=== PATIENT | male | born 1950 | race Caucasian/White ===

== ENCOUNTER 2020-03-21 11:16 | Inpatient (IN) | payer OTHER ==
[2020-03-21] MEDS ORDERED: ALBUTEROL HFA INHALER INHALATION STA (11:41)
[2020-03-21] MEDS ORDERED: SODIUM CHLORIDE 0.9% 1,000 ML IV STA (11:53)
[2020-03-21 12:01] LABS: Basophils # (A) 0.2 k/uL (0-0.2); Basophils % (A) 3 %; Eosinophils % (A) 0 %; HCT 49.8 % (39.0-53.0); HGB 17.8 gm/dL (13.0-17.5); Lymphocytes # (A) 0.5 k/uL (1.0-4.8); Lymphocytes % (A) 7 %; MCH 33.3 pg (25.0-35.0); MCHC 35.8 g/dL (31.0-37.0); Mean Platelet Volume 7.7; Monocytes # (A) 0.5 k/uL (0-1.0); Monocytes % (A) 8 %; Neutrophils # (A) 5.5 k/uL (1.3-7.7); Neutrophils % (A) 81 %; Platelet Count 238 k/uL (150-450); RBC 5.36 m/uL (4.30-5.90); RDW 12.1 % (11.5-15.5); WBC 6.8 k/uL (3.8-10.6)
--- NOTE | 2020-03-21 12:08 | ED ---
SOB HPI - General Chief Complaint: Shortness of Breath Stated Complaint: SOB Time Seen by Provider: 03/21/20 11:25 Source: patient, family Mode of arrival: wheelchair Limitations: no limitations - History of Present Illness Initial Comments: Patient is a 69-year-old male presenting to the emergency Department with complaints of shortness of breath it's been increasing over the past 10 days. Patient states his mother was recently admitted to the hospital for covert infection and his symptoms started shortly after that. He states he's has been having fevers, they've been usually low grade temperature. He denies history of asthma or COPD, he is a nonsmoker. He currently takes no medications. He states he is just been feeling really winded, nausea, increasing cough and the shortness of breath has really been making him more fatigued. He denies any Tylenol or Motrin today. Denies any abdominal pain, no vomiting, he did have some diarrhea but that has since cleared. He states he has lost a lot of his taste and smell as well. He has not been eating or drinking very much. He denies having headache, no dizziness. He has no further complaints at this time. Upon arrival to the ER, temp is 99.3, pulse is 108, 94% on room air, 138/89. - Related Data Home Medications Medication Instructions Recorded Confirmed No Known Home Medications 03/21/20 03/21/20 Allergies Allergy/AdvReac Type Severity Reaction Status Date / Time No Known Allergies Allergy Verified 03/21/20 13:38 Review of Systems ROS Statement: Those systems with pertinent positive or pertinent negative responses have been documented in the HPI. ROS Other: All systems not noted in ROS Statement are negative. Past Medical History Past Medical History: No Reported History History of Any Multi-Drug Resistant Organisms: None Reported Past Surgical History: No Surgical Hx Reported Past Psychological History: No Psychological Hx Reported Smoking Status: Never smoker Past Alcohol Use History: None Reported Past Drug Use History: None Reported General Exam - General Exam Comments Initial Comments: GENERAL: Patient is well-developed and well-nourished. Patient is nontoxic and in no acute distress, does look fatigued. HEAD: Atraumatic, normocephalic. EYES: Pupils equal round and reactive to light, extraocular movements intact, sclera anicteric, conjunctiva are normal. Eyelids were unremarkable. ENT: TMs normal, nares patent, oropharynx clear without exudates. Dry mucous membranes. NECK: Normal range of motion, supple without lymphadenopathy or JVD. LUNGS: Unlabored respirations. Breath sounds clear to auscultation bilaterally and equal. No wheezes rales or rhonchi. HEART: Regular rate and rhythm without murmurs, rubs or gallops. ABDOMEN: Soft, nontender, normoactive bowel sounds. No guarding, no rebound. No masses appreciated. : Deferred MUSCULOSKELETAL: Normal extremities with adequate strength and normal range of motion, no pitting or edema. No clubbing or cyanosis. NEUROLOGICAL: Patient is alert and oriented x 3. Motor and sensory are also intact. Cranial nerves II through XII grossly intact. Symmetrical smile. Normal speech, normal gait. PSYCH: Normal mood, normal affect. SKIN: Warm, Dry, normal turgor, no rashes or lesions noted. Limitations: no limitations Course Vital Signs 03/21/20 03/21/20 03/21/20 11:20 12:00 12:30 Temperature 99.3 F Pulse Rate 108 H 99 101 H Respiratory 19 22 18 Rate Blood Pressure 138/89 148/90 142/88 O2 Sat by Pulse 94 L 94 L 95 Oximetry 03/21/20 13:00 Temperature Pulse Rate 98 Respiratory 18 Rate Blood Pressure 140/85 O2 Sat by Pulse 93 L Oximetry Medical Decision Making - Medical Decision Making Patient 61-year-old male here for shortness of breath it's been increasingly the past 10 days. He recently had exposure to Covid about 10 days ago when his mother was admitted. No history of asthma, COPD, he is a nonsmoker. He takes no medications. His EKG shows nonspecific abnormalities, no signs of acute process. Chest x-ray shows mild right peripheral mid and right lower lobe infiltrates, compatible with atypical pneumonia. Patient's Covid test is positive. Labs show normal white count, typical elevation of liver enzymes, LDH, CRP with Covid patients. D-dimer side elevated at 1.02. We did order a CT to rule out PE. This is pending. Patient arrived afebrile, tachycardia at 108, 93% on room air. Patient was started on 2 L. He has been satting anywhere from 92-94% on the 2 L. He still feels very winded, fatigued. Patient will be admitted to continue with oxygen, steroids. Patient is in agreement with this plan of care. Patient accepted by Dr. bowling. Case discussed with Dr. Orta. - Lab Data Result diagrams: 03/21/20 11:52 03/21/20 11:52 Lab Results 03/21/20 03/21/20 03/21/20 Range/Units 11:52 11:52 11:52 WBC 6.8 (3.8-10.6) k/uL RBC 5.36 (4.30-5.90) m/uL Hgb 17.8 H (13.0-17.5) gm/dL Hct 49.8 (39.0-53.0) % MCV 93.0 (80.0-100.0) fL MCH 33.3 (25.0-35.0) pg MCHC 35.8 (31.0-37.0) g/dL RDW 12.1 (11.5-15.5) % Plt Count 238 (150-450) k/uL MPV 7.7 Neutrophils % 81 % Lymphocytes % 7 % Monocytes % 8 % Eosinophils % 0 % Basophils % 3 % Neutrophils # 5.5 (1.3-7.7) k/uL Lymphocytes # 0.5 L (1.0-4.8) k/uL Monocytes # 0.5 (0-1.0) k/uL Eosinophils # 0.0 (0-0.7) k/uL Basophils # 0.2 (0-0.2) k/uL PT 10.3 (9.0-12.0) sec INR 1.0 (<1.2) APTT 22.0 (22.0-30.0) sec D-Dimer 1.02 H (<0.60) mg/L FEU Sodium 138 (137-145) mmol/L Potassium 3.6 (3.5-5.1) mmol/L Chloride 101 (98-107) mmol/L Carbon Dioxide 27 (22-30) mmol/L Anion Gap 10 mmol/L BUN 17 (9-20) mg/dL Creatinine 1.07 (0.66-1.25) mg/dL Est GFR (CKD-EPI)AfAm 83 (>60 ml/min/1.73 sqM) Est GFR (CKD-EPI)NonAf 72 (>60 ml/min/1.73 sqM) Glucose 145 H (74-99) mg/dL Plasma Lactic Acid Orion (0.7-2.0) mmol/L Calcium 8.5 (8.4-10.2) mg/dL Magnesium 1.9 (1.6-2.3) mg/dL Total Bilirubin 1.9 H (0.2-1.3) mg/dL AST 71 H (17-59) U/L ALT 64 H (4-49) U/L Alkaline Phosphatase 127 H (38-126) U/L Lactate Dehydrogenase 883 H (313-618) U/L C-Reactive Protein 62.9 H (<10.0) mg/L Total Protein 7.0 (6.3-8.2) g/dL Albumin 3.7 (3.5-5.0) g/dL Coronavirus (PCR) (Not Detectd) 03/21/20 03/21/20 Range/Units 11:52 11:52 WBC (3.8-10.6) k/uL RBC (4.30-5.90) m/uL Hgb (13.0-17.5) gm/dL Hct (39.0-53.0) % MCV (80.0-100.0) fL MCH (25.0-35.0) pg MCHC (31.0-37.0) g/dL RDW (11.5-15.5) % Plt Count (150-450) k/uL MPV Neutrophils % % Lymphocytes % % Monocytes % % Eosinophils % % Basophils % % Neutrophils # (1.3-7.7) k/uL Lymphocytes # (1.0-4.8) k/uL Monocytes # (0-1.0) k/uL Eosinophils # (0-0.7) k/uL Basophils # (0-0.2) k/uL PT (9.0-12.0) sec INR (<1.2) APTT (22.0-30.0) sec D-Dimer (<0.60) mg/L FEU Sodium (137-145) mmol/L Potassium (3.5-5.1) mmol/L Chloride (98-107) mmol/L Carbon Dioxide (22-30) mmol/L Anion Gap mmol/L BUN (9-20) mg/dL Creatinine (0.66-1.25) mg/dL Est GFR (CKD-EPI)AfAm (>60 ml/min/1.73 sqM) Est GFR (CKD-EPI)NonAf (>60 ml/min/1.73 sqM) Glucose (74-99) mg/dL Plasma Lactic Acid Orion 1.9 (0.7-2.0) mmol/L Calcium (8.4-10.2) mg/dL Magnesium (1.6-2.3) mg/dL Total Bilirubin (0.2-1.3) mg/dL AST (17-59) U/L ALT (4-49) U/L Alkaline Phosphatase (38-126) U/L Lactate Dehydrogenase (313-618) U/L C-Reactive Protein (<10.0) mg/L Total Protein (6.3-8.2) g/dL Albumin (3.5-5.0) g/dL Coronavirus (PCR) Detected A (Not Detectd) - EKG Data EKG Comments: Sinus tach, nonspecific ST abnormalities, no signs of acute ischemia. Ventricul ar rate 106, MD interval 152, QT 342. Disposition Clinical Impression: Pneumonia due to COVID-19 virus, Hypoxia Disposition: ADMITTED IP TO THIS HOSP Condition: Stable Is patient prescribed a controlled substance at d/c from ED?: No Decision Date: 03/21/20 Decision Time: 13:26
[2020-03-21 12:13] LABS: Albumin 3.7 g/dL (3.5-5.0); C Reactive Protein 62.9 mg/L (<10.0); Calcium 8.5 mg/dL (8.4-10.2); Magnesium 1.9 mg/dL (1.6-2.3); Potassium 3.6 mmol/L (3.5-5.1); Total Bilirubin 1.9 mg/dL (0.2-1.3)
[2020-03-21 12:18] LABS: Prothrombin Time 10.3 sec (9.0-12.0)
[2020-03-21 12:29] LABS: D-Dimer 1.02 mg/L FEU (<0.60)
--- NOTE | 2020-03-21 12:30 | XR ---
EXAMINATION TYPE: XR chest 1V portable DATE OF EXAM: 03/21/2020 COMPARISON: None INDICATION: Suspected Covid pneumonia, fever TECHNIQUE: Single frontal view of the chest is obtained. FINDINGS: The heart size is normal. The pulmonary vasculature is normal. Mild nonspecific infiltrate to the right mid and lower lung field. Findings can be compatible with at ypical pneumonia. IMPRESSION: 1. Mild right peripheral mid and right lower lobe lobe infiltrates. Findings can be compatible with a typical pneumonia.
[2020-03-21] MEDS ORDERED: ACETAMINOPHEN TAB 500 MG TAB PO PRN (13:23)
[2020-03-21] MEDS: DEXAMETHASONE SOD PHOSPHATE 10 MG/ML 1 ML VIAL IV SCH (13:33)
[2020-03-21] MEDS: ENOXAPARIN 40 MG/0.4 ML SYRINGE SQ SCH (13:34)
--- NOTE | 2020-03-21 14:02 | CT ---
CT CHEST FOR PULMONARY EMBOLISM. EXAMINATION TYPE: CT chest angio for PE DATE OF EXAM: 03/21/2020 INDICATION: Elevated d-dimer, positive covid CT DLP: 734.1 mGycm, Automated exposure control for dose reduction was used. CONTRAST: Patient injected with 100, wasted 21 ml mL of Isovue 370. COMPARISON: TECHNIQUE: CT of the chest is performed on a spiral scan at 2 mm thick sections. Study is performed with intravenous contrast timed for evaluation for pulmonary embolism. This will limit additional po rtions of the evaluation. 3-D MIP images reconstructed by the technologist are reviewed on the compu ter in the coronal and sagittal planes. FINDINGS: No persistent filling defects are evident to suggest an acute pulmonary embolism. There is a small right pleural effusion. Some mild compressive atelectasis may be adjacent to the barbra g bases. Some patchy infiltrates in the periphery of the lungs. Consider atypical pneumonia within th e differential. The ascending aorta diameter at the level of the main pulmonary artery is 0.2 cm. The main pulmonary artery diameter at the bifurcation is 2.6 cm. There is soft tissue thickening extends to the infrahilar region into the right hilum. A 1.2 cm lymph node may be present at the right. There are scattered small lymph nodes within the mediastinum. Ther e is a subcarinal lymph node 1.4 cm. Few aortopulmonic window shotty nodes are present. Limited CT section through the upper abdomen are unremarkable. IMPRESSIONS: 1. No acute pulmonary embolism. 2. Scattered groundglass opacities and infiltrates within the periphery of the lower lung porter. Con manager perioperative atypical pneumonia within the differential. 3. There is some soft tissue thickening through the right infrahilar region with some enlarged medias tinal lymph nodes. Follow-up is recommended. Neoplasm is not excluded.
--- NOTE | 2020-03-21 14:54 | P.HPIM ---
History of Present Illness This is a pleasant 69 years old male with no significant past medical history presents because of dyspnea of 10 day duration associated with coughing clear phlegm and chest pain on coughing. He waited 10 days and then his made him come to the hospital. He had very bad diarrhea a few days ago but now resolved. No abdominal pain or vomiting. No headache or weakness or numbness were made no urinary complaints He denies smoking, alcohol or illicit drugs. He does not follow up with PCP does not have home medication On admission is tachycardic at 101, he is saturating 93% on 2 L oxygen via nasal cannula. Labs reviewed, CBC showing mild lymphopenia at 0.5K, INR is normal at 1.0, d-dimer slightly elevated at 1.0, BNP is unremarkable, magnesium is 1.9, liver enzymes slightly elevated with AST 71, ALT 64 and total bilirubin 1.9. Lactate dehydrogenase is high at 883 and C-reactive protein at 62.9. coronavirus is detected CT of the chest: No PE, scattered groundglass opacities in the periphery of the lower lung porter , there is some soft tissue thickening through the right infrahilar region with some enlarged mediastinal lymph nodes. Neoplasm not To exclude 1. Chest x-ray showing mild right lower lobe infiltrate. EKG showing size sinus tachycardia at [address]-T changes Review of Systems CONSTITUTIONAL: No fever, no malaise, no fatigue. HEENT: No recent visual problems or hearing problems. Denied any sore throat. CARDIOVASCULAR: No orthopnea, PND, no palpitations, no syncope. PULMONARY: No chest wall tenderness, no hemoptysis. GASTROINTESTINAL: No diarrhea, no nausea, no vomiting, no abdominal pain. Normoactive bowel sounds. NEUROLOGICAL: No headaches, no weakness, no numbness. HEMATOLOGICAL: Denies any bleeding or petechiae. GENITOURINARY: Denies any burning micturition, frequency, or urgency. MUSCULOSKELETAL/RHEUMATOLOGICAL: Denies any joint pain, swelling, or any muscle pain. ENDOCRINE: Denies any polyuria or polydipsia. Past Medical History Past Medical History: No Reported History History of Any Multi-Drug Resistant Organisms: None Reported Past Surgical History: No Surgical Hx Reported Past Psychological History: No Psychological Hx Reported Smoking Status: Never smoker Past Alcohol Use History: None Reported Past Drug Use History: None Reported Medications and Allergies Home Medications Medication Instructions Recorded Confirmed Type No Known Home Medications 03/21/20 03/21/20 History Allergies Allergy/AdvReac Type Severity Reaction Status Date / Time No Known Allergies Allergy Verified 03/21/20 13:38 Physical Exam Vitals: Vital Signs Temp Pulse Resp BP Pulse Ox 03/21/20 14:00 96 20 128/90 94 L 03/21/20 13:30 101 H 18 150/96 94 L 03/21/20 13:00 98 18 140/85 93 L 03/21/20 12:30 101 H 18 142/88 95 03/21/20 12:00 99 22 148/90 94 L 03/21/20 11:20 99.3 F 108 H 19 138/89 94 L Intake and Output 03/20/20 03/21/20 03/21/20 22:59 06:59 14:59 Other: Weight 102.058 kg GENERAL: The patient is alert and oriented x3, not in any acute distress. Well developed, well nourished. HEENT: Pupils are round and equally reacting to light. EOMI. No scleral icterus. No conjunctival pallor. Normocephalic, atraumatic. No pharyngeal erythema. No thyromegaly. CARDIOVASCULAR: S1 and S2 present. No murmurs, rubs, or gallops. PULMONARY: Chest is clear to auscultation, no wheezing or crackles. ABDOMEN: Soft, nontender, nondistended, normoactive bowel sounds. No palpable organomegaly. MUSCULOSKELETAL: No joint swelling or deformity. EXTREMITIES: No cyanosis, clubbing, or pedal edema. NEUROLOGICAL: Gross neurological examination did not reveal any focal deficits. SKIN: No rashes. No petechiae Results CBC & Chem 7: 03/21/20 11:52 03/21/20 11:52 Labs: Abnormal Lab Results - Last 24 Hours (Table) 03/21/20 03/21/20 03/21/20 Range/Units 11:52 11:52 11:52 Hgb 17.8 H (13.0-17.5) gm/dL Lymphocytes # 0.5 L (1.0-4.8) k/uL D-Dimer 1.02 H (<0.60) mg/L FEU Glucose 145 H (74-99) mg/dL Total Bilirubin 1.9 H (0.2-1.3) mg/dL AST 71 H (17-59) U/L ALT 64 H (4-49) U/L Alkaline Phosphatase 127 H (38-126) U/L Lactate Dehydrogenase 883 H (313-618) U/L C-Reactive Protein 62.9 H (<10.0) mg/L Coronavirus (PCR) (Not Detectd) 03/21/20 Range/Units 11:52 Hgb (13.0-17.5) gm/dL Lymphocytes # (1.0-4.8) k/uL D-Dimer (<0.60) mg/L FEU Glucose (74-99) mg/dL Total Bilirubin (0.2-1.3) mg/dL AST (17-59) U/L ALT (4-49) U/L Alkaline Phosphatase (38-126) U/L Lactate Dehydrogenase (313-618) U/L C-Reactive Protein (<10.0) mg/L Coronavirus (PCR) Detected A (Not Detectd) Assessment and Plan Assessment: Bilateral covid 19 pneumonia. soft tissue thickening through the right infrahilar region with some enlarged mediastinal lymph nodes. Neoplasm not To exclude Mildly elevated liver enzymes Plan: This is a pleasant 69 years old male who presents with Covid pneumonia, new pleasant also is not exclude it and the right infrahilar region. Continue with dexamethasone, vitamin C and zinc. Pulmonary consult. Oxygen as needed as well as Lovenox I told the patient about fullness in his right side of the chest with possible to be the mass and/or cancer with a recommendation that he follow-up with a lung doctor upon discharge and he agrees Labs and medication were reviewed.. Continue same treatment. Continue with symptomatic treatment. Resume home medication. Monitor lytes and vitals. DVT and GI prophylaxis. Further recommendations depends on the clinical course of the patient DVT prophylaxis: Subcutaneous Lovenox GI Prophylaxis: Pepcid Prognosis is guarded
[2020-03-21] MEDS: CHOLECALCIFEROL 25 MCG (1000 IU) TABLET PO SCH (15:58)
[2020-03-21] MEDS: ZINC SULFATE 220 MG CAP PO SCH (15:59)
[2020-03-21 16:34] LABS: Glucose,Whole Blood 138 mg/dL (75-99)
[2020-03-21] MEDS: INSULIN ASPART (NovoLOG) 100 UNIT/ML VIAL SQ SCH ×2 (17:05→20:28)
[2020-03-21 19:52] LABS: Ferritin 4181.7 ng/mL (22.0-322.0)
[2020-03-21 20:23] LABS: Glucose,Whole Blood 162 mg/dL (75-99)
[2020-03-22 06:57] LABS: Glucose,Whole Blood 117 mg/dL (75-99)
[2020-03-22] MEDS: INSULIN ASPART (NovoLOG) 100 UNIT/ML VIAL SQ SCH ×4 (07:41→20:53)
[2020-03-22] MEDS: DEXAMETHASONE SOD PHOSPHATE 10 MG/ML 1 ML VIAL IV SCH (08:54)
[2020-03-22] MEDS: ZINC SULFATE 220 MG CAP PO SCH (08:55)
[2020-03-22] MEDS: CHOLECALCIFEROL 25 MCG (1000 IU) TABLET PO SCH (08:55)
[2020-03-22] MEDS: ENOXAPARIN 40 MG/0.4 ML SYRINGE SQ SCH (08:55)
[2020-03-22] MEDS: FAMOTIDINE 20 MG TAB PO SCH (08:55)
[2020-03-22] MEDS: ASCORBIC ACID 500 MG TAB PO SCH (08:55)
[2020-03-22 11:28] LABS: Glucose,Whole Blood 135 mg/dL (75-99)
[2020-03-22] MEDS ORDERED: REMDESIVIR 200 MG in SODIUM CHLORIDE 0.9% 250 ML IVPB ONE (12:00)
--- NOTE | 2020-03-22 13:56 | P.CNPUL ---
History of Present Illness Consult date: 03/22/20 Reason for consult: dyspnea, cough Chief complaint: Shortness of breath, cough, diarrhea History of present illness: 69-year-old white male patient who presents the emergency department on 03/21/2020 for evaluation of worsening shortness of breath, mild cough that was initially productive, fever, fatigue, nausea, loss of smell and taste. Patient reports decreased oral intake, reports a low-grade fevers, worsening dyspnea. Did report diarrhea which is reportedly improved. Patient states his mother was recently hospitalized for COPD 19 infection, and his symptoms started shortly after that. He thinks his may also be infected with COVID 19 however she has not been tested. His COVID 19 PCR was positive, chest x-ray showed a mild right peripheral mid and right lower lobe infiltrates. Lab data reviewed s howing white blood cell, 6.8, hemoglobin of 17.8, lymphocyte count of 0.5, d- dimer is 1.02, electrolytes and renal profile were unremarkable, plasma lactic acid was 1.9, ferritin level is 4181, total bilirubin is 1.9, his liver enzymes were elevated, with AST at 71, ALT is 64, alkaline phosphatase of 127, LDH was 883, CRP was 62.9, pro calcitonin level was 0.42. He did have some low-grade fevers on admission, 's been afebrile overnight, he is currently on 2 L of oxygen and his pulse ox between 90-92%. His breathing is nonlabored, no cough, no chest discomfort. Patient has been started on prophylactic dose of Lovenox, Pepcid, and Decadron 6 mg daily. He has been started on vitamin C, zinc, we will initiate the patient on Remdesivir in addition to colchicine 0.6 mg twice daily Review of Systems All systems: negative Constitutional: Reports fatigue, Reports fever, Reports malaise, Reports poor appetite, Reports weakness, Denies chills Eyes: denies blurred vision, denies pain Ears, nose, mouth and throat: Denies headache, Denies sore throat Cardiovascular: Denies chest pain, Denies shortness of breath Respiratory: Denies cough Gastrointestinal: Reports diarrhea, Reports loss of appetite, Reports nausea, Denies abdominal pain, Denies vomiting Musculoskeletal: Denies myalgias Integumentary: Denies pruritus, Denies rash Neurological: Denies numbness, Denies weakness Psychiatric: Denies anxiety, Denies depression Endocrine: Denies fatigue, Denies weight change Past Medical History Past Medical History: No Reported History History of Any Multi-Drug Resistant Organisms: None Reported Past Surgical History: No Surgical Hx Reported Past Psychological History: No Psychological Hx Reported Smoking Status: Never smoker Past Alcohol Use History: None Reported Past Drug Use History: None Reported Medications and Allergies Home Medications Medication Instructions Recorded Confirmed Type No Known Home Medications 03/21/20 03/21/20 History Allergies Allergy/AdvReac Type Severity Reaction Status Date / Time No Known Allergies Allergy Verified 03/21/20 13:38 Physical Exam Vitals: Vital Signs Temp Pulse Pulse Resp BP BP Pulse Ox 03/22/20 09:46 97.6 F 81 22 146/82 92 L 03/22/20 07:42 58 L 17 03/22/20 05:28 98.2 F 58 L 17 134/84 90 L 03/22/20 02:00 98.0 F 64 17 142/80 90 L 03/21/20 20:00 98.1 F 85 18 137/80 95 03/21/20 18:01 98.9 F 85 19 147/80 93 L 03/21/20 14:46 98.5 F 80 18 149/83 94 L 03/21/20 14:00 96 20 128/90 94 L Intake and Output 03/21/20 03/22/20 03/22/20 22:59 06:59 14:59 Other: Voiding Method Toilet Toilet # Voids 1 2 GENERAL EXAM: Alert, very pleasant, 61-year-old white male, on 2 L of oxygen pulse ox of 90%, comfortable in no apparent distress. HEAD: Normocephalic/atraumatic. EYES: Normal reaction of pupils, equal size. Conjunctiva pink, sclera white. NOSE: Clear with pink turbinates. THROAT: No erythema or exudates. NECK: No masses, no JVD, no thyroid enlargement, no adenopathy. CHEST: No chest wall deformity. Symmetrical expansion. LUNGS: Equal air entry with no crackles, wheeze, rhonchi or dullness. CVS: Regular rate and rhythm, normal S1 and S2, no gallops, no murmurs, no rubs ABDOMEN: Soft, nontender. No hepatosplenomegaly, normal bowel sounds, no guarding or rigidity. EXTREMITIES: No clubbing, no edema, no cyanosis, 2+ pulses and upper and lower extremities. MUSCULOSKELETAL: Muscle strength and tone normal. SPINE: No scoliosis or deformity SKIN: No rashes CENTRAL NERVOUS SYSTEM: Alert and oriented -3. No focal deficits, tone is normal in all 4 extremities. PSYCHIATRIC: Alert and oriented -3. Appropriate affect. Intact judgment and insight. Results - Laboratory Findings CBC and BMP: 03/21/20 11:52 03/21/20 11:52 PT/INR, D-dimer PT 10.3 sec (9.0-12.0) 03/21/20 11:52 INR 1.0 (<1.2) 03/21/20 11:52 D-Dimer 1.02 mg/L FEU (<0.60) H 03/21/20 11:52 Abnormal lab findings: Abnormal Labs 03/21/20 03/21/20 03/21/20 11:52 11:52 11:52 Hgb 17.8 H Lymphocytes # 0.5 L D-Dimer 1.02 H Glucose 145 H POC Glucose (mg/dL) Ferritin 4181.7 H Total Bilirubin 1.9 H AST 71 H ALT 64 H Alkaline Phosphatase 127 H Lactate Dehydrogenase 883 H C-Reactive Protein 62.9 H Procalcitonin Coronavirus (PCR) 03/21/20 03/21/20 03/21/20 11:52 11:52 16:33 Hgb Lymphocytes # D-Dimer Glucose POC Glucose (mg/dL) 138 H Ferritin Total Bilirubin AST ALT Alkaline Phosphatase Lactate Dehydrogenase C-Reactive Protein Procalcitonin 0.42 H Coronavirus (PCR) Detected A 03/21/20 03/22/20 03/22/20 20:21 06:52 11:27 Hgb Lymphocytes # D-Dimer Glucose POC Glucose (mg/dL) 162 H 117 H 135 H Ferritin Total Bilirubin AST ALT Alkaline Phosphatase Lactate Dehydrogenase C-Reactive Protein Procalcitonin Coronavirus (PCR) - Diagnostic Findings Chest x-ray: report reviewed, image reviewed CT scan - chest: report reviewed, image reviewed Assessment and Plan Plan: Assessment: #1. Acute hypoxic respiratory failure, related to acute COVID 19 related pneumonia, 19 PCR was positive, his chest x-ray showed mild right peripheral mid in the right lower lobe infiltrates. #2. Elevated d-dimer, CTA chest was negative for pulmonary embolism, he did not scattered groundglass opacities and infiltrates within the periphery of the lower lung porter, and soft tissue thickening through the right infrahilar region with some enlarged mediastinal lymph nodes, likely reactive lymphadenopathy, we will need outpatient follow-up #3. Elevated inflammatory markers related to viral pneumonia #4. Dyspnea, fatigue, nausea, diarrhea, loss of taste and sputum related to acute COVID 19 pneumonia #5. Never smoker #6. Mildly elevated liver enzymes likely related to viral pneumonia Plan: We will continue the Decadron, continue current dose of Lovenox, we'll start the patient on Remdesivir, we will add colchicine 0.6 mg twice daily, continue the vitamin C, zinc, continue Pepcid. We'll continue to monitor patient's inflammatory markers, d-dimer, oxygenation pattern and febrile pattern. I performed a history & physical examination of the patient and discussed their management with my nurse practitioner, Tahira Benjamin. I reviewed the nurse practitioner's note and agree with the documented findings and plan of care. Lung sounds are positive for diminished breath sounds. The findings and the impression was discussed with the patient. I attest to the documentation by the nurse practitioner. Time with Patient: Greater than 30
[2020-03-22] MEDS: COLCHICINE 0.6 MG EACH PO SCH ×2 (14:10→22:21)
--- NOTE | 2020-03-22 15:03 | P.PN ---
Subjective 69 years old male with no significant past medical history presents because of dyspnea of 10 day duration associated with coughing clear phlegm and chest pain on coughing. He waited 10 days and then his made him come to the hospital. He had very bad diarrhea a few days ago but now resolved. No abdominal pain or vomiting. No headache or weakness or numbness were made no urinary complaints He denies smoking, alcohol or illicit drugs. He does not follow up with PCP does not have home medication On admission is tachycardic at 101, he is saturating 93% on 2 L oxygen via nasal cannula. Labs reviewed, CBC showing mild lymphopenia at 0.5K, INR is normal at 1.0, d-dimer slightly elevated at 1.0, BNP is unremarkable, magnesium is 1.9, liver enzymes slightly elevated with AST 71, ALT 64 and total bilirubin 1.9. Lactate dehydrogenase is high at 883 and C-reactive protein at 62.9. coronavirus is detected CT of the chest: No PE, scattered groundglass opacities in the periphery of the lower lung porter , there is some soft tissue thickening through the right infrahilar region with some enlarged mediastinal lymph nodes. Neoplasm not To exclude 1. Chest x-ray showing mild right lower lobe infiltrate. EKG showing size sinus tachycardia at [address]-T changes 03/22/2020 Patient is clinically doing well remains on 2 L of oxygen patient was started on Remdesivir. If patient improves by tomorrow patient probably will be discharged if he doesn't require any oxygen by tomorrow. Constitutional: Denied any fatigue denied any fever. Cardio vascular: denied any chest pain, palpitations Gastrointestinal denied any nausea vomiting Pulmonary: Denied any shortness of breath cough Neurologic denied any new focal deficits All inpatient medications were reviewed and appropriate changes in these medications as dictated in the interval history and assessment and plan. Objective - Vital Signs Vital signs: Vital Signs Temp 97.6 F 03/22/20 14:00 Pulse 72 03/22/20 14:00 Resp 20 03/22/20 14:00 BP 148/78 03/22/20 14:00 Pulse Ox 94 L 03/22/20 14:00 Intake & Output 03/21/20 03/22/20 03/22/20 18:59 06:59 18:59 Weight 102.058 kg Other: Voiding Method Toilet Toilet Toilet # Voids 3 2 - Exam PHYSICAL EXAMINATION: GENERAL: The patient is alert and oriented x3, not in any acute distress. Well developed, well nourished. HEENT: Pupils are round and equally reacting to light. EOMI. No scleral icterus. No conjunctival pallor. Normocephalic, atraumatic. No pharyngeal erythema. No thyromegaly. CARDIOVASCULAR: S1 and S2 present. No murmurs, rubs, or gallops. PULMONARY: Chest is clear to auscultation, no wheezing or crackles. ABDOMEN: Soft, nontender, nondistended, normoactive bowel sounds. No palpable organomegaly. MUSCULOSKELETAL: No joint swelling or deformity. EXTREMITIES: No cyanosis, clubbing, or pedal edema. NEUROLOGICAL: Gross neurological examination did not reveal any focal deficits. SKIN: No rashes. Note: Because of COVID 19 isolation, some of the history and physical exam findings are indirect and obtained from nursing staff, and other physician examinations to avoid unnecessary contact with the patient. - Labs CBC & Chem 7: 03/21/20 11:52 03/21/20 11:52 Labs: Abnormal Lab Results - Last 24 Hours (Table) 03/21/20 03/21/20 03/21/20 Range/Units 11:52 11:52 16:33 POC Glucose (mg/dL) 138 H (75-99) mg/dL Ferritin 4181.7 H (22.0-322.0) ng/mL Procalcitonin 0.42 H (0.02-0.09) ng/mL 03/21/20 03/22/20 03/22/20 Range/Units 20:21 06:52 11:27 POC Glucose (mg/dL) 162 H 117 H 135 H (75-99) mg/dL Ferritin (22.0-322.0) ng/mL Procalcitonin (0.02-0.09) ng/mL Microbiology - Last 24 Hours (Table) 03/21/20 11:52 Blood Culture - Preliminary Blood No Growth after 24 hours Assessment and Plan Plan: Bilateral covid 19 pneumonia. Continue with the anti-inflammatory medications Decadron. soft tissue thickening through the right infrahilar region with some enlarged mediastinal lymph nodes. Reactive in nature Mildly elevated liver enzymes: Secondary to Covid 19 Plan: This is a pleasant 69 years old male who presents with Covid pneumonia, new sunil also is not exclude it and the right infrahilar region. Continue with dexamethasone, vitamin C and zinc. Pulmonology evaluated the patient. Oxygen as needed as well as Lovenox Patient appears to have a reactive lymphadenopathy and mediastinal lymphadenopathy. Patient was started on Remdesivir Labs and medication were reviewed.. Continue same treatment. Continue with symptomatic treatment. DVT prophylaxis: Subcutaneous Lovenox GI Prophylaxis: Pepcid
[2020-03-22 16:41] LABS: Glucose,Whole Blood 154 mg/dL (75-99)
[2020-03-22 20:48] LABS: Glucose,Whole Blood 129 mg/dL (75-99)
[2020-03-23 06:56] LABS: Glucose,Whole Blood 109 mg/dL (75-99)
[2020-03-23] MEDS: INSULIN ASPART (NovoLOG) 100 UNIT/ML VIAL SQ SCH ×4 (07:07→22:40)
[2020-03-23] MEDS: DEXAMETHASONE SOD PHOSPHATE 10 MG/ML 1 ML VIAL IV SCH (07:56)
[2020-03-23] MEDS: ENOXAPARIN 40 MG/0.4 ML SYRINGE SQ SCH (07:56)
[2020-03-23] MEDS: CHOLECALCIFEROL 25 MCG (1000 IU) TABLET PO SCH (07:57)
[2020-03-23] MEDS: ASCORBIC ACID 500 MG TAB PO SCH (07:57)
[2020-03-23] MEDS: COLCHICINE 0.6 MG EACH PO SCH ×2 (07:57→20:04)
[2020-03-23] MEDS: FAMOTIDINE 20 MG TAB PO SCH (07:57)
[2020-03-23] MEDS: ZINC SULFATE 220 MG CAP PO SCH (07:57)
--- NOTE | 2020-03-23 09:58 | XR ---
EXAMINATION TYPE: XR chest 1V portable DATE OF EXAM: 03/23/2020 Comparison: 03/21/2020 Clinical History: 69-year-old male COVID 19 Findings: Heart borderline enlarged. Patchy peripheral bilateral opacities persist without significant change. Impression: Patchy peripheral bilateral opacities persist without significant change.
[2020-03-23 10:17] LABS: C Reactive Protein 2.5 mg/dL (0.0-0.8)
[2020-03-23 11:40] LABS: Glucose,Whole Blood 121 mg/dL (75-99)
[2020-03-23] MEDS: REMDESIVIR 100 MG in SODIUM CHLORIDE 0.9% 250 ML IVPB SCH (12:05)
--- NOTE | 2020-03-23 13:34 | P.PN ---
Subjective Progress Note Date: 03/23/20 Principal diagnosis: Shortness of breath, cough, diarrhea 69-year-old white male patient who presents the emergency department on 03/21/2020 for evaluation of worsening shortness of breath, mild cough that was initially productive, fever, fatigue, nausea, loss of smell and taste. Patient reports decreased oral intake, reports a low-grade fevers, worsening dyspnea. Did report diarrhea which is reportedly improved. Patient states his mother was recently hospitalized for COPD 19 infection, and his symptoms started shortly after that. He thinks his may also be infected with COVID 19 however she has not been tested. His COVID 19 PCR was positive, chest x-ray showed a mild right peripheral mid and right lower lobe infiltrates. Lab data reviewed showing white blood cell, 6.8, hemoglobin of 17.8, lymphocyte count of 0.5, d- dimer is 1.02, electrolytes and renal profile were unremarkable, plasma lactic acid was 1.9, ferritin level is 4181, total bilirubin is 1.9, his liver enzymes were elevated, with AST at 71, ALT is 64, alkaline phosphatase of 127, LDH was 883, CRP was 62.9, pro calcitonin level was 0.42. He did have some low-grade fevers on admission, 's been afebrile overnight, he is currently on 2 L of oxygen and his pulse ox between 90-92%. His breathing is nonlabored, no cough, no chest discomfort. Patient has been started on prophylactic dose of Lovenox, Pepcid, and Decadron 6 mg daily. He has been started on vitamin C, zinc, we will initiate the patient on Remdesivir in addition to colchicine 0.6 mg twice daily On 03/23/2020 patient seen in follow-up on medical floor, is currently on 2 L of oxygen pulse ox of 96%, he is breathing comfortably, in no acute distress, he feels and looks as if he is feeling better today, today is day 2 of Remdesivir treatment, his chest x-ray shows possibly mild improvement in the appearance of patchy peripheral bilateral opacities, no significant change according to the radiologist interpretation. No fever or chills, blood pressure has been stable. Inflammatory markers are improving. D-dimer is improving, down to 0.45, she remains on prophylactic dose of Lovenox, remains on colchicine, vitamins, Pepcid, and Decadron 6 mg daily Objective - Vital Signs Vital signs: Vital Signs Temp 97.9 F 03/23/20 10:02 Pulse 73 03/23/20 10:02 Resp 17 03/23/20 10:02 BP 166/95 03/23/20 10:02 Pulse Ox 96 03/23/20 10:02 Intake & Output 03/22/20 03/23/20 03/23/20 18:59 06:59 18:59 Other: Voiding Method Toilet Toilet Toilet # Voids 3 1 - Exam GENERAL EXAM: Alert, very pleasant, 61-year-old white male, on 2 L of oxygen pulse ox of 90%, comfortable in no apparent distress. HEAD: Normocephalic/atraumatic. EYES: Normal reaction of pupils, equal size. Conjunctiva pink, sclera white. NOSE: Clear with pink turbinates. THROAT: No erythema or exudates. NECK: No masses, no JVD, no thyroid enlargement, no adenopathy. CHEST: No chest wall deformity. Symmetrical expansion. LUNGS: Equal air entry with no crackles, wheeze, rhonchi or dullness. CVS: Regular rate and rhythm, normal S1 and S2, no gallops, no murmurs, no rubs ABDOMEN: Soft, nontender. No hepatosplenomegaly, normal bowel sounds, no guarding or rigidity. EXTREMITIES: No clubbing, no edema, no cyanosis, 2+ pulses and upper and lower extremities. MUSCULOSKELETAL: Muscle strength and tone normal. SPINE: No scoliosis or deformity SKIN: No rashes CENTRAL NERVOUS SYSTEM: Alert and oriented -3. No focal deficits, tone is normal in all 4 extremities. PSYCHIATRIC: Alert and oriented -3. Appropriate affect. Intact judgment and insight. - Labs CBC & Chem 7: 03/21/20 11:52 03/21/20 11:52 Labs: Abnormal Lab Results - Last 24 Hours (Table) 03/22/20 03/22/20 03/23/20 Range/Units 16:29 20:47 06:00 POC Glucose (mg/dL) 154 H 129 H (75-99) mg/dL Lactate Dehydrogenase 263 H (120-246) U/L C-Reactive Protein 2.5 H (0.0-0.8) mg/dL 03/23/20 03/23/20 Range/Units 06:50 11:37 POC Glucose (mg/dL) 109 H 121 H (75-99) mg/dL Lactate Dehydrogenase (120-246) U/L C-Reactive Protein (0.0-0.8) mg/dL Microbiology - Last 24 Hours (Table) 03/21/20 11:52 Blood Culture - Preliminary Blood No Growth after 24 hours Assessment and Plan Plan: Assessment: #1. Acute hypoxic respiratory failure, related to acute COVID 19 related pneumonia, 19 PCR was positive, his chest x-ray showed mild right peripheral mid in the right lower lobe infiltrates. Started on Remdesivir on 03/22/2020 #2. Elevated d-dimer, CTA chest was negative for pulmonary embolism, he did not scattered groundglass opacities and infiltrates within the periphery of the lower lung porter, and soft tissue thickening through the right infrahilar region with some enlarged mediastinal lymph nodes, likely reactive lymphadenopathy, we will need outpatient follow-up #3. Elevated inflammatory markers related to viral pneumonia #4. Dyspnea, fatigue, nausea, diarrhea, loss of taste and sputum related to acute COVID 19 pneumonia #5. Never smoker #6. Mildly elevated liver enzymes likely related to viral pneumonia Plan: Continue current medical treatment, Day 2 of Remdesivir, continue current dose Decadron, inflammatory markers are improving, patient is feeling better, breathing easier, vital stable, we will continue to monitor patient's oxygenation, fever pattern, medicines, and workup breathing. Today's chest x- ray has been reviewed showing possibly a mild improvement in appearance of bilateral patchy infiltrates. Continue to follow I performed a history & physical examination of the patient and discussed their management with my nurse practitioner, Tahira Benjamin. I reviewed the nurse practitioner's note and agree with the documented findings and plan of care. Lung sounds are positive for diminished breath sounds. The findings and the impression was discussed with the patient. I attest to the documentation by the nurse practitioner. Time with Patient: Less than 30
--- NOTE | 2020-03-23 14:45 | P.PN ---
Subjective Progress Note Date: 03/23/20 69 years old male with no significant past medical history presents because of dyspnea of 10 day duration associated with coughing clear phlegm and chest pain on coughing. He waited 10 days and then his made him come to the hospital. He had very bad diarrhea a few days ago but now resolved. No abdominal pain or vomiting. No headache or weakness or numbness were made no urinary complaints He denies smoking, alcohol or illicit drugs. He does not follow up with PCP does not have home medication On admission is tachycardic at 101, he is saturating 93% on 2 L oxygen via nasal cannula. Labs reviewed, CBC showing mild lymphopenia at 0.5K, INR is normal at 1.0, d-dimer slightly elevated at 1.0, BNP is unremarkable, magnesium is 1.9, liver enzymes slightly elevated with AST 71, ALT 64 and total bilirubin 1.9. Lactate dehydrogenase is high at 883 and C-reactive protein at 62.9. coronavirus is detected CT of the chest: No PE, scattered groundglass opacities in the periphery of the lower lung porter , there is some soft tissue thickening through the right infrahilar region with some enlarged mediastinal lymph nodes. Neoplasm not To exclude 1. Chest x-ray showing mild right lower lobe infiltrate. EKG showing size sinus tachycardia at [address]-T changes 03/22/2020 Patient is clinically doing well remains on 2 L of oxygen patient was started on Remdesivir. If patient improves by tomorrow patient probably will be discharged if he doesn't require any oxygen by tomorrow. 03/23/2020 Patient is seen and evaluated and follow-up currently on 1-2 L of oxygen via nasal cannula. Patient is being followed by pulmonary. Patient is currently receiving Remdesivir along with dexamethasone, vitamin supplements, and Lovenox and will continue at this time. Incentive spirometer ordered and instructed the patient to continue using at least 10 times every hour while awake. Also instructed the patient to increase activity as tolerated and sit up in the chair. D-dimer trending down to 0.45 today, lactate dehydrogenase also decreased in is 263 and CRP is 2.5. Constitutional: Denied any fatigue denied any fever. Cardio vascular: denied any chest pain, palpitations Gastrointestinal denied any nausea vomiting Pulmonary: Denied any worsening shortness of breath with occasional cough Neurologic denied any new focal deficits All inpatient medications were reviewed and appropriate changes in these medications as dictated in the interval history and assessment and plan. Objective - Vital Signs Vital signs: Vital Signs Temp 98.0 F 03/23/20 05:09 Pulse 63 03/23/20 05:09 Resp 18 03/23/20 05:09 BP 154/78 03/23/20 05:09 Pulse Ox 91 L 03/23/20 05:09 Intake & Output 03/22/20 03/23/20 03/23/20 18:59 06:59 18:59 Other: Voiding Method Toilet Toilet # Voids 3 1 - Exam GENERAL: The patient is alert and oriented x3, not in any acute distress. Well developed, well nourished. HEENT: Pupils are round and equally reacting to light. EOMI. No scleral icterus. No conjunctival pallor. Normocephalic, atraumatic. No pharyngeal erythema. No thyromegaly. CARDIOVASCULAR: S1 and S2 present. No murmurs, rubs, or gallops. PULMONARY: Chest is clear to auscultation, no wheezing or crackles. ABDOMEN: Soft, nontender, nondistended, normoactive bowel sounds. No palpable organomegaly. MUSCULOSKELETAL: No joint swelling or deformity. EXTREMITIES: No cyanosis, clubbing, or pedal edema. NEUROLOGICAL: Gross neurological examination did not reveal any focal deficits. SKIN: No rashes. - Labs CBC & Chem 7: 03/21/20 11:52 03/21/20 11:52 Labs: Abnormal Lab Results - Last 24 Hours (Table) 03/22/20 03/22/20 03/22/20 Range/Units 11:27 16:29 20:47 POC Glucose (mg/dL) 135 H 154 H 129 H (75-99) mg/dL 03/23/20 Range/Units 06:50 POC Glucose (mg/dL) 109 H (75-99) mg/dL Microbiology - Last 24 Hours (Table) 03/21/20 11:52 Blood Culture - Preliminary Blood No Growth after 24 hours Assessment and Plan Assessment: Bilateral covid 19 pneumonia. Continue with Decadron, Lovenox, vitamin C and E, zinc supplements. Patient receiving Remdesivir day 2, pulmonary following soft tissue thickening through the right infrahilar region with some enlarged mediastinal lymph nodes. Reactive in nature Mildly elevated liver enzymes: Secondary to Covid 19 DVT prophylaxis: Subcutaneous Lovenox GI Prophylaxis: Pepcid Plan: Continue with dexamethasone, vitamin C and zinc, Lovenox and patient is on Remdesivir. Pulmonology following. Oxygen as needed discussed with nursing staff about weaning FiO2 as tolerated. Patient is currently 90-91% on 1 L via nasal cannula. Discussed with patient about increasing activity as tolerated and incentive spirometer was ordered and instructed the patient to use at least 10 times every hour while awake. Will continue to monitor closely.
[2020-03-23 16:36] LABS: Glucose,Whole Blood 143 mg/dL (75-99)
[2020-03-23 20:18] LABS: Glucose,Whole Blood 116 mg/dL (75-99)
[2020-03-24 06:48] LABS: Glucose,Whole Blood 87 mg/dL (75-99)
[2020-03-24] MEDS: INSULIN ASPART (NovoLOG) 100 UNIT/ML VIAL SQ SCH ×4 (07:21→20:30)
[2020-03-24] MEDS: FAMOTIDINE 20 MG TAB PO SCH (07:31)
[2020-03-24] MEDS: CHOLECALCIFEROL 25 MCG (1000 IU) TABLET PO SCH (07:31)
[2020-03-24] MEDS: ASCORBIC ACID 500 MG TAB PO SCH (07:31)
[2020-03-24] MEDS: COLCHICINE 0.6 MG EACH PO SCH ×2 (07:32→19:39)
[2020-03-24] MEDS: ZINC SULFATE 220 MG CAP PO SCH (07:32)
[2020-03-24] MEDS: ENOXAPARIN 40 MG/0.4 ML SYRINGE SQ SCH (07:32)
[2020-03-24] MEDS: DEXAMETHASONE SOD PHOSPHATE 10 MG/ML 1 ML VIAL IV SCH (07:32)
[2020-03-24 09:58] LABS: African American GFR (CKD) 101.4 (60.0-200.0); Anion Gap 9.4 mmol/L (4.00-12.00); Calcium 8.4 mg/dL (8.7-10.3); Carbon Dioxide 28.6 mmol/L (21.6-31.8); Non-African American GFR(CKD) 87.5 (60.0-200.0); Potassium 4.1 mmol/L (3.5-5.5)
[2020-03-24 11:38] LABS: Glucose,Whole Blood 118 mg/dL (75-99)
[2020-03-24] MEDS: REMDESIVIR 100 MG in SODIUM CHLORIDE 0.9% 250 ML IVPB SCH (12:39)
--- NOTE | 2020-03-24 13:56 | P.PN ---
Subjective Progress Note Date: 03/24/20 69 years old male with no significant past medical history presents because of dyspnea of 10 day duration associated with coughing clear phlegm and chest pain on coughing. He waited 10 days and then his made him come to the hospital. He had very bad diarrhea a few days ago but now resolved. No abdominal pain or vomiting. No headache or weakness or numbness were made no urinary complaints He denies smoking, alcohol or illicit drugs. He does not follow up with PCP does not have home medication On admission is tachycardic at 101, he is saturating 93% on 2 L oxygen via nasal cannula. Labs reviewed, CBC showing mild lymphopenia at 0.5K, INR is normal at 1.0, d-dimer slightly elevated at 1.0, BNP is unremarkable, magnesium is 1.9, liver enzymes slightly elevated with AST 71, ALT 64 and total bilirubin 1.9. Lactate dehydrogenase is high at 883 and C-reactive protein at 62.9. coronavirus is detected CT of the chest: No PE, scattered groundglass opacities in the periphery of the lower lung porter , there is some soft tissue thickening through the right infrahilar region with some enlarged mediastinal lymph nodes. Neoplasm not To exclude 1. Chest x-ray showing mild right lower lobe infiltrate. EKG showing size sinus tachycardia at [address]-T changes 03/22/2020 Patient is clinically doing well remains on 2 L of oxygen patient was started on Remdesivir. If patient improves by tomorrow patient probably will be discharged if he doesn't require any oxygen by tomorrow. 03/23/2020 Patient is seen and evaluated and follow-up currently on 1-2 L of oxygen via nasal cannula. Patient is being followed by pulmonary. Patient is currently receiving Remdesivir along with dexamethasone, vitamin supplements, and Lovenox and will continue at this time. Incentive spirometer ordered and instructed the patient to continue using at least 10 times every hour while awake. Also instructed the patient to increase activity as tolerated and sit up in the chair. D-dimer trending down to 0.45 today, lactate dehydrogenase also decreased in is 263 and CRP is 2.5. 03/24/2020 Patient is seen this morning with no acute overnight issues. Patient is maintained on 1.5-2 L of oxygen currently at 98% saturation. Discussed with nursing staff along with patient about weaning FiO2 as tolerated. Patient is 92% on room air. Patient continues to get dyspneic with exertion as far as walking to the bathroom and back. Pulmonary is following and discussed with them about patient wanting to leave although he is currently receiving remdesivir. Incentive spirometer at the bedside and instructed the patient to continue using at least 10 times every hour while awake. Constitutional: Denied any fatigue denied any fever. Cardio vascular: denied any chest pain, palpitations Gastrointestinal denied any nausea vomiting Pulmonary: Denied any worsening shortness of breath with occasional cough Neurologic denied any new focal deficits All inpatient medications were reviewed and appropriate changes in these medications as dictated in the interval history and assessment and plan. Objective - Vital Signs Vital signs: Vital Signs Temp 97.5 F L 03/24/20 09:19 Pulse 66 03/24/20 09:19 Resp 18 03/24/20 09:19 BP 135/74 03/24/20 09:19 Pulse Ox 96 03/24/20 09:19 Intake & Output 03/23/20 03/24/20 03/24/20 18:59 06:59 18:59 Other: Voiding Method Toilet Toilet Toilet # Voids 3 3 - Exam GENERAL: The patient is alert and oriented x3, not in any acute distress. Well developed, well nourished. HEENT: Pupils are round and equally reacting to light. EOMI. No scleral icterus. No conjunctival pallor. Normocephalic, atraumatic. No pharyngeal erythema. No thyromegaly. CARDIOVASCULAR: S1 and S2 present. No murmurs, rubs, or gallops. PULMONARY: Chest is clear to auscultation, no wheezing or crackles. ABDOMEN: Soft, nontender, nondistended, normoactive bowel sounds. No palpable organomegaly. MUSCULOSKELETAL: No joint swelling or deformity. EXTREMITIES: No cyanosis, clubbing, or pedal edema. NEUROLOGICAL: Gross neurological examination did not reveal any focal deficits. SKIN: No rashes. - Labs CBC & Chem 7: 03/21/20 11:52 03/24/20 05:58 Labs: Abnormal Lab Results - Last 24 Hours (Table) 03/23/20 03/23/20 03/23/20 Range/Units 11:37 16:27 20:16 BUN/Creatinine Ratio (12.00-20.00) Ratio POC Glucose (mg/dL) 121 H 143 H 116 H (75-99) mg/dL Calcium (8.7-10.3) mg/dL 03/24/20 Range/Units 05:58 BUN/Creatinine Ratio 30.00 H (12.00-20.00) Ratio POC Glucose (mg/dL) (75-99) mg/dL Calcium 8.4 L (8.7-10.3) mg/dL Microbiology - Last 24 Hours (Table) 03/21/20 11:52 Blood Culture - Preliminary Blood No Growth after 48 hours Assessment and Plan Assessment: Bilateral covid 19 pneumonia. Continue with Decadron, Lovenox, vitamin C and E, zinc supplements, and colchisine. Patient receiving Remdesivir day 3, pulmonary following soft tissue thickening through the right infrahilar region with some enlarged mediastinal lymph nodes. Reactive in nature Mildly elevated liver enzymes: Secondary to Covid 19 DVT prophylaxis: Subcutaneous Lovenox GI Prophylaxis: Pepcid Plan: Continue with dexamethasone, vitamin C and zinc, Lovenox and patient is on Remdesivir. Pulmonology following. discussed with nursing staff about weaning FiO2 as tolerated. Continues to be dyspneic with exertion. Discussed with patient about increasing activity as tolerated and incentive spirometer was ordered and instructed the patient to use at least 10 times every hour while awake. Will continue to monitor closely. Possible discharge in 24- 48 hours.
--- NOTE | 2020-03-24 15:19 | P.PN ---
Subjective Progress Note Date: 03/24/20 Principal diagnosis: Shortness of breath, cough, diarrhea 69-year-old white male patient who presents the emergency department on 03/21/2020 for evaluation of worsening shortness of breath, mild cough that was initially productive, fever, fatigue, nausea, loss of smell and taste. Patient reports decreased oral intake, reports a low-grade fevers, worsening dyspnea. Did report diarrhea which is reportedly improved. Patient states his mother was recently hospitalized for COPD 19 infection, and his symptoms started shortly after that. He thinks his may also be infected with COVID 19 however she has not been tested. His COVID 19 PCR was positive, chest x-ray showed a mild right peripheral mid and right lower lobe infiltrates. Lab data reviewed showing white blood cell, 6.8, hemoglobin of 17.8, lymphocyte count of 0.5, d- dimer is 1.02, electrolytes and renal profile were unremarkable, plasma lactic acid was 1.9, ferritin level is 4181, total bilirubin is 1.9, his liver enzymes were elevated, with AST at 71, ALT is 64, alkaline phosphatase of 127, LDH was 883, CRP was 62.9, pro calcitonin level was 0.42. He did have some low-grade fevers on admission, 's been afebrile overnight, he is currently on 2 L of oxygen and his pulse ox between 90-92%. His breathing is nonlabored, no cough, no chest discomfort. Patient has been started on prophylactic dose of Lovenox, Pepcid, and Decadron 6 mg daily. He has been started on vitamin C, zinc, we will initiate the patient on Remdesivir in addition to colchicine 0.6 mg twice daily On 03/23/2020 patient seen in follow-up on medical floor, is currently on 2 L of oxygen pulse ox of 96%, he is breathing comfortably, in no acute distress, he feels and looks as if he is feeling better today, today is day 2 of Remdesivir treatment, his chest x-ray shows possibly mild improvement in the appearance of patchy peripheral bilateral opacities, no significant change according to the radiologist interpretation. No fever or chills, blood pressure has been stable. Inflammatory markers are improving. D-dimer is improving, down to 0.45, she remains on prophylactic dose of Lovenox, remains on colchicine, vitamins, Pepcid, and Decadron 6 mg daily On 03/24/2020 patient seen in follow-up on medical floor, she remains on small amount of oxygen, currently just to 1/2 L and the pulse ox 96%, looks very comfortable, no worsening dyspnea, he continues on Remdesivir, today is day 3 of treatment, continues on Decadron, and likely patient has had no worsening dyspnea, vitals have been stable. no chest discomfort or palpitations. Objective - Vital Signs Vital signs: Vital Signs Temp 98.4 F 03/24/20 14:16 Pulse 79 03/24/20 14:16 Resp 18 03/24/20 14:16 BP 155/83 03/24/20 14:16 Pulse Ox 92 L 03/24/20 14:16 Intake & Output 03/23/20 03/24/20 03/24/20 18:59 06:59 18:59 Intake Total 200 Balance 200 Intake: Oral 200 Other: Voiding Method Toilet Toilet Toilet # Voids 3 3 - Exam GENERAL EXAM: Alert, very pleasant, 61-year-old white male, on room air with a pulse ox of 92%, comfortable in no apparent distress. HEAD: Normocephalic/atraumatic. EYES: Normal reaction of pupils, equal size. Conjunctiva pink, sclera white. NOSE: Clear with pink turbinates. THROAT: No erythema or exudates. NECK: No masses, no JVD, no thyroid enlargement, no adenopathy. CHEST: No chest wall deformity. Symmetrical expansion. LUNGS: Equal air entry with no crackles, wheeze, rhonchi or dullness. CVS: Regular rate and rhythm, normal S1 and S2, no gallops, no murmurs, no rubs ABDOMEN: Soft, nontender. No hepatosplenomegaly, normal bowel sounds, no guarding or rigidity. EXTREMITIES: No clubbing, no edema, no cyanosis, 2+ pulses and upper and lower extremities. MUSCULOSKELETAL: Muscle strength and tone normal. SPINE: No scoliosis or deformity SKIN: No rashes CENTRAL NERVOUS SYSTEM: Alert and oriented -3. No focal deficits, tone is normal in all 4 extremities. PSYCHIATRIC: Alert and oriented -3. Appropriate affect. Intact judgment and insight. - Labs CBC & Chem 7: 03/21/20 11:52 03/24/20 05:58 Labs: Abnormal Lab Results - Last 24 Hours (Table) 03/23/20 03/23/20 03/24/20 Range/Units 16:27 20:16 05:58 BUN/Creatinine Ratio 30.00 H (12.00-20.00) Ratio POC Glucose (mg/dL) 143 H 116 H (75-99) mg/dL Calcium 8.4 L (8.7-10.3) mg/dL 03/24/20 Range/Units 11:36 BUN/Creatinine Ratio (12.00-20.00) Ratio POC Glucose (mg/dL) 118 H (75-99) mg/dL Calcium (8.7-10.3) mg/dL Microbiology - Last 24 Hours (Table) 03/21/20 11:52 Blood Culture - Preliminary Blood No Growth after 72 hours Assessment and Plan Plan: Assessment: #1. Acute hypoxic respiratory failure, related to acute COVID 19 related pneumonia, COVID19 PCR was positive, his chest x-ray showed mild right peripheral mid in the right lower lobe infiltrates. Started on Remdesivir on 03/22/2020 #2. Elevated d-dimer, CTA chest was negative for pulmonary embolism, he did not scattered groundglass opacities and infiltrates within the periphery of the lower lung porter, and soft tissue thickening through the right infrahilar region with some enlarged mediastinal lymph nodes, likely reactive lymphadenopathy, we will need outpatient follow-up #3. Elevated inflammatory markers related to viral pneumonia #4. Dyspnea, fatigue, nausea, diarrhea, loss of taste and sputum related to acute COVID 19 pneumonia #5. Never smoker #6. Mildly elevated liver enzymes likely related to viral pneumonia Plan: Patient is doing well, no worsening dyspnea, no fever, lung sounds have been stable, wean FiO2, today is day 3 of Remdesivir treatment, if continues to do well, will likely stop Remdesivir 1 day early tomorrow, and consider discharge home in the next 24 hours, taking follow-up pro-calcitonin tomorrow, follow up LFTs, d-dimer, and inflammatory markers. I performed a history & physical examination of the patient and discussed their management with my nurse practitioner, Tahira Benjamin. I reviewed the nurse practitioner's note and agree with the documented findings and plan of care. Lung sounds are positive for diminished breath sounds. The findings and the impression was discussed with the patient. I attest to the documentation by the nurse practitioner. Time with Patient: Less than 30
[2020-03-24 16:45] LABS: Glucose,Whole Blood 116 mg/dL (75-99)
[2020-03-24] MEDS ORDERED: ALPRAZolam 0.25 MG TAB PO PRN (17:31)
[2020-03-24 20:17] LABS: Glucose,Whole Blood 117 mg/dL (75-99)
[2020-03-25 06:59] LABS: Glucose,Whole Blood 87 mg/dL (75-99)
[2020-03-25] MEDS: INSULIN ASPART (NovoLOG) 100 UNIT/ML VIAL SQ SCH ×2 (07:29→11:34)
[2020-03-25] MEDS: DEXAMETHASONE SOD PHOSPHATE 10 MG/ML 1 ML VIAL IV SCH (07:36)
[2020-03-25] MEDS: FAMOTIDINE 20 MG TAB PO SCH (07:36)
[2020-03-25] MEDS: ASCORBIC ACID 500 MG TAB PO SCH (07:36)
[2020-03-25] MEDS: ZINC SULFATE 220 MG CAP PO SCH (07:36)
[2020-03-25] MEDS: CHOLECALCIFEROL 25 MCG (1000 IU) TABLET PO SCH (07:36)
[2020-03-25] MEDS: COLCHICINE 0.6 MG EACH PO SCH (07:36)
[2020-03-25] MEDS: ENOXAPARIN 40 MG/0.4 ML SYRINGE SQ SCH (07:37)
[2020-03-25 09:49] LABS: African American GFR (CKD) 101.4 (60.0-200.0); Albumin 3.3 g/dL (3.80-4.90); Albumin/Globulin Ratio 1.83 (1.60-3.17); Anion Gap 9.7 mmol/L (4.00-12.00); BUN/Creat Ratio 26.67 Ratio (12.00-20.00); C Reactive Protein 1.2 mg/dL (0.0-0.8); Calcium 8.2 mg/dL (8.7-10.3); Carbon Dioxide 25.3 mmol/L (21.6-31.8); Globulin 1.8 g/dL (1.6-3.3); Non-African American GFR(CKD) 87.5 (60.0-200.0); Potassium 3.8 mmol/L (3.5-5.5); Total Bilirubin 0.8 mg/dL (0.3-1.2); Total Protein 5.1 g/dL (6.2-8.2)
[2020-03-25 10:25] VITALS: BP 164/81; PULSE 59; RESP 17; TEMP 97.5
--- NOTE | 2020-03-25 12:52 | P.PN ---
Subjective Progress Note Date: 03/25/20 Principal diagnosis: Shortness of breath, cough, diarrhea 69-year-old white male patient who presents the emergency department on 03/21/2020 for evaluation of worsening shortness of breath, mild cough that was initially productive, fever, fatigue, nausea, loss of smell and taste. Patient reports decreased oral intake, reports a low-grade fevers, worsening dyspnea. Did report diarrhea which is reportedly improved. Patient states his mother was recently hospitalized for COPD 19 infection, and his symptoms started shortly after that. He thinks his may also be infected with COVID 19 however she has not been tested. His COVID 19 PCR was positive, chest x-ray showed a mild right peripheral mid and right lower lobe infiltrates. Lab data reviewed showing white blood cell, 6.8, hemoglobin of 17.8, lymphocyte count of 0.5, d- dimer is 1.02, electrolytes and renal profile were unremarkable, plasma lactic acid was 1.9, ferritin level is 4181, total bilirubin is 1.9, his liver enzymes were elevated, with AST at 71, ALT is 64, alkaline phosphatase of 127, LDH was 883, CRP was 62.9, pro calcitonin level was 0.42. He did have some low-grade fevers on admission, 's been afebrile overnight, he is currently on 2 L of oxygen and his pulse ox between 90-92%. His breathing is nonlabored, no cough, no chest discomfort. Patient has been started on prophylactic dose of Lovenox, Pepcid, and Decadron 6 mg daily. He has been started on vitamin C, zinc, we will initiate the patient on Remdesivir in addition to colchicine 0.6 mg twice daily On 03/23/2020 patient seen in follow-up on medical floor, is currently on 2 L of oxygen pulse ox of 96%, he is breathing comfortably, in no acute distress, he feels and looks as if he is feeling better today, today is day 2 of Remdesivir treatment, his chest x-ray shows possibly mild improvement in the appearance of patchy peripheral bilateral opacities, no significant change according to the radiologist interpretation. No fever or chills, blood pressure has been stable. Inflammatory markers are improving. D-dimer is improving, down to 0.45, she remains on prophylactic dose of Lovenox, remains on colchicine, vitamins, Pepcid, and Decadron 6 mg daily On 03/24/2020 patient seen in follow-up on medical floor, she remains on small amount of oxygen, currently just to 1/2 L and the pulse ox 96%, looks very comfortable, no worsening dyspnea, he continues on Remdesivir, today is day 3 of treatment, continues on Decadron, and likely patient has had no worsening dyspnea, vitals have been stable. no chest discomfort or palpitations. On 03/25/2020 patient seen in follow-up on medical floor, he is doing well, currently off supplemental oxygen, room air pulse ox of 95%, his been afebrile hemodynamically has been stable, he is breathing comfortably, is had no fever or chills, no chest discomfort or palpitations, he continues on Remdesivir, and today is going to be his day 4 of treatment however patient remained stable from pulmonary perspective, improved since admission, with no worsening symptoms or hypoxemia, with can probably stop his treatment with Remdesivir early today and send him home to complete his 10 day course of oral Decadron. Objective - Vital Signs Vital signs: Vital Signs Temp 97.5 F L 03/25/20 09:30 Pulse 59 L 03/25/20 09:30 Resp 17 03/25/20 09:30 BP 164/81 03/25/20 09:30 Pulse Ox 95 03/25/20 09:30 Intake & Output 03/24/20 03/25/20 03/25/20 18:59 06:59 18:59 Intake Total 200 250 Balance 200 250 Intake: Oral 200 250 Other: Voiding Method Toilet Toilet Toilet # Voids 3 2 - Exam GENERAL EXAM: Alert, very pleasant, 61-year-old white male, on room air with a pulse ox of 95%, comfortable in no apparent distress. HEAD: Normocephalic/atraumatic. EYES: Normal reaction of pupils, equal size. Conjunctiva pink, sclera white. NOSE: Clear with pink turbinates. THROAT: No erythema or exudates. NECK: No masses, no JVD, no thyroid enlargement, no adenopathy. CHEST: No chest wall deformity. Symmetrical expansion. LUNGS: Equal air entry with no crackles, wheeze, rhonchi or dullness. CVS: Regular rate and rhythm, normal S1 and S2, no gallops, no murmurs, no rubs ABDOMEN: Soft, nontender. No hepatosplenomegaly, normal bowel sounds, no guarding or rigidity. EXTREMITIES: No clubbing, no edema, no cyanosis, 2+ pulses and upper and lower extremities. MUSCULOSKELETAL: Muscle strength and tone normal. SPINE: No scoliosis or deformity SKIN: No rashes CENTRAL NERVOUS SYSTEM: Alert and oriented -3. No focal deficits, tone is nor mal in all 4 extremities. PSYCHIATRIC: Alert and oriented -3. Appropriate affect. Intact judgment and insight. - Labs CBC & Chem 7: 03/21/20 11:52 03/25/20 05:52 Labs: Abnormal Lab Results - Last 24 Hours (Table) 03/24/20 03/24/20 03/25/20 Range/Units 16:43 20:16 05:52 BUN/Creatinine Ratio (12.00-20.00) Ratio POC Glucose (mg/dL) 116 H 117 H (75-99) mg/dL Calcium (8.7-10.3) mg/dL AST (14-35) U/L ALT (10-49) U/L Lactate Dehydrogenase (120-246) U/L C-Reactive Protein (0.0-0.8) mg/dL Total Protein (6.2-8.2) g/dL Albumin (3.80-4.90) g/dL Procalcitonin 0.28 H (0.02-0.09) ng/mL 03/25/20 Range/Units 05:52 BUN/Creatinine Ratio 26.67 H (12.00-20.00) Ratio POC Glucose (mg/dL) (75-99) mg/dL Calcium 8.2 L (8.7-10.3) mg/dL AST 47 H (14-35) U/L ALT 68 H (10-49) U/L Lactate Dehydrogenase 249 H (120-246) U/L C-Reactive Protein 1.2 H (0.0-0.8) mg/dL Total Protein 5.1 L (6.2-8.2) g/dL Albumin 3.30 L (3.80-4.90) g/dL Procalcitonin (0.02-0.09) ng/mL Microbiology - Last 24 Hours (Table) 03/21/20 11:52 Blood Culture - Preliminary Blood No Growth after 72 hours Assessment and Plan Plan: Assessment: #1. Acute hypoxic respiratory failure, related to acute COVID 19 related pneumonia, COVID19 PCR was positive, his chest x-ray showed mild right peripheral mid in the right lower lobe infiltrates. Started on Remdesivir on 03/22/2020 #2. Elevated d-dimer, CTA chest was negative for pulmonary embolism, he did not scattered groundglass opacities and infiltrates within the periphery of the lower lung porter, and soft tissue thickening through the right infrahilar region with some enlarged mediastinal lymph nodes, likely reactive lymphadenopathy, we will need outpatient follow-up #3. Elevated inflammatory markers related to viral pneumonia #4. Dyspnea, fatigue, nausea, diarrhea, loss of taste and sputum related to acute COVID 19 pneumonia #5. Never smoker #6. Mildly elevated liver enzymes likely related to viral pneumonia Plan: Inflammatory markers are improving, pro-calcitonin level improved, vital signs have been stable, patient is on room air, d-dimer is within normal limits, no worsening hypoxia or dyspnea, we'll stop the Remdesivir, patient can be discharged home today to complete his 10 day course of oral Decadron. Outpatient follow-up with Dr. Monterroso in the office in 2-3 weeks I performed a history & physical examination of the patient and discussed their management with my nurse practitioner, Tahira Benjamin. I reviewed the nurse practitioner's note and agree with the documented findings and plan of care. Lung sounds are positive for diminished breath sounds. The findings and the impression was discussed with the patient. I attest to the documentation by the nurse practitioner. Time with Patient: Less than 30
--- NOTE | 2020-03-25 15:29 | P.DS ---
Providers Date of admission: 03/21/20 14:02 Expected date of discharge: 03/25/20 Attending physician: Anthony Biggs MD Consults: 03/21/20 14:43 Consult Physician Routine Consulting Provider: Rodolfo Jeronimo Consult Reason/Comments: covid pna Do you want consulting provider notified?: Yes Primary care physician: Stated None Hospital Course: Final Diagnosis Bilateral covid 19 pneumonia soft tissue thickening through the right infrahilar region with some enlarged mediastinal lymph nodes. Reactive in nature Mildly elevated liver enzymes: Secondary to Covid 19 DVT prophylaxis GI Prophylaxis Discharge disposition Patient is being discharged in a stable condition with guarded prognosis to home. Patient will follow-up with Dr. Carter in the outpatient setting upon discharge. Patient is scheduled to follow up with pulmonary Dr. Frankel in the outpatient setting as well. Patient will continue on dexamethasone along with colchicine and vitamin C and E and zinc supplements. Total time taken is greater than 35 minutes. Hospital course This is a 69-year-old male who was recently admitted with dyspnea and cough and was being closely monitored. Patient was found to be Covid 19 positive and was seen and evaluated by pulmonary and started on dexamethasone, Lovenox, vitamin C and D, colchicine, and started the Remdesivir treatment and completed 3 of the 4 remaining doses. She will continue on dexamethasone along with colchicine in the outpatient setting. Patient instructed to establish with primary care provider and follow-up and follow-up with pulmonary in the outpatient setting in 2-3 weeks. Patient instructed to continue using incentive spirometer at least 10 times every hour while awake and continue to maintain social distancing and wearing a mask. Currently no reports of chest pain, worsening shortness of breath, or palpitations. Patient is afebrile. No reports of nausea or vomiting and patient is tolerating diet. Patient will be discharged home today. On exam vital signs are stable. Temp is 97.5F, pulse is 59, respirations are 17, blood pressure is 164/81, oxygen saturation is 95% on room air. Cardio S1, S2 are muffled. Respiratory system shows diminished breath sounds at the bases with no wheezing or rhonchi noted. Abdomen is soft and nontender. Nervous system shows no focal deficits. Please refer to medication reconciliation sheet for a list of medications. Patient Condition at Discharge: Stable Plan - Discharge Summary Discharge Rx Participant: Yes New Discharge Prescriptions: New Colchicine [Colcrys] 0.6 mg PO BID 7 Days #14 tablet Dexamethasone [Decadron] 6 mg PO DAILY 7 Days #7 tablet Zinc Sulfate [Orazinc] 220 mg PO DAILY 30 Days #30 cap Acetaminophen Tab [Tylenol] 1,000 mg PO Q6HR PRN tab PRN Reason: Fever>101 Ascorbic Acid [Vitamin C] 1,000 mg PO DAILY 30 Days #60 tab Cholecalciferol [Vitamin D3 (25 Mcg = 1000 Iu)] 125 mcg PO DAILY 30 Days #30 tablet Discharge Medication List Acetaminophen Tab [Tylenol] 1,000 mg PO Q6HR PRN tab 03/25/20 [Rx] Ascorbic Acid [Vitamin C] 1,000 mg PO DAILY 30 Days #60 tab 03/25/20 [Rx] Cholecalciferol [Vitamin D3 (25 Mcg = 1000 Iu)] 125 mcg PO DAILY 30 Days #30 tablet 03/25/20 [Rx] Colchicine [Colcrys] 0.6 mg PO BID 7 Days #14 tablet 03/25/20 [Rx] Dexamethasone [Decadron] 6 mg PO DAILY 7 Days #7 tablet 03/25/20 [Rx] Zinc Sulfate [Orazinc] 220 mg PO DAILY 30 Days #30 cap 03/25/20 [Rx] Follow up Appointment(s)/Referral(s): Loreta Frankel MD [STAFF PHYSICIAN] - 04/27/20 9:45 am Danna Carter MD [REFERRING] - 1-2 Days (Please call to schedule appointment ) Patient Instructions/Handouts: Coronavirus Disease 2019 (COVID-19), Hypoxia (GEN) Activity/Diet/Wound Care/Special Instructions: Activity Limited until follow-up Follow-up with primary care provider upon discharge and establish with one Continue medications as prescribed Continue to encourage fluids and rest Continue wearing a mask and maintaining social distancing Follow up with pulmonary in the outpatient setting continue current diet Continue with incentive spirometer at least 10 times every hour while awake Discharge Disposition: HOME SELF-CARE
== END 2020-03-25 12:58 | disposition home or self-care (01) | DRG 177 ==
LOC: EC 11:16 → 4SSUR 14:02
PROVIDERS: ADMIT Internal Medicine; ATTEND Internal Medicine
PROC: XW033E5 Introduction of Remdesivir Anti-infective into Peripheral Vein, Percutaneous Approach, New Technology Group 5 (ICD-10-PCS; principal; 2020-03-21)
DX: U07.1 COVID-19 (principal); J12.82 Pneumonia due to coronavirus disease 2019; J96.01 Acute respiratory failure with hypoxia; Z82.5 Family history of asthma and other chronic lower respiratory diseases; R94.5 Abnormal results of liver function studies; R79.1 Abnormal coagulation profile; R19.7 Diarrhea, unspecified; R59.0 Localized enlarged lymph nodes
CPT/HCPCS: 36415; 71045; 71275; 80048; 80053; 82728; 83605; 83615; 83735; 84145; 85025; 85379; 85610; 85730; 86140; 87040; 87635; 93005; 94640; 96361; 96372; 96374; 99285